=== PATIENT | female | born 1990 | race Caucasian/White ===

== ENCOUNTER 2018-07-19 15:42 | Outpatient (CLI) | payer OTHER ==
--- NOTE | 2018-07-19 15:56 | RAD ---
RIGHT FOOT THREE VIEWS: History: Right foot pain. FINDINGS: Tarsals appear intact. The metatarsals and phalanges are unremarkable. MTP and IP joints unremarkable . IMPRESSION: Unremarkable exam. POS: MARYSOL
== END 2018-07-19 15:43 | disposition home or self-care (01) ==
LOC: SCSRAD 15:42
PROVIDERS: ATTEND Family Medicine
DX: M79.671 Pain in right foot (principal)
CPT/HCPCS: 87480; 87510; 87660